=== PATIENT | male | born 1970 | race Two or more races ===

== ENCOUNTER 2024-08-05 18:44 | Inpatient (IN) | payer OTHER ==
[2024-08-05] MEDS ORDERED: SUCRALFATE 1 GM TABLET (FP) ONE (19:39)
[2024-08-05] MEDS ORDERED: MAG HYDROX/AL HYDROX/SIMETH 30 ML UNIT-DOSE CUP ONE (19:40)
[2024-08-05] MEDS ORDERED: FAMOTIDINE 20 MG/50 ML IVPB 20 MG/50 ML MG IVPB ONE (19:40)
[2024-08-05] MEDS: SUCRALFATE 1 GM/10 ML UNIT DOSE CUPS PO ONE (20:02)
[2024-08-05] MEDS: MAG HYDROX/AL HYDROX/SIMETH 30 ML UNIT-DOSE CUP PO ONE (20:02)
[2024-08-05] MEDS: FAMOTIDINE 20 MG/50 ML IVPB 20 MG/50 ML MG IVPB ONE (20:02)
[2024-08-05 20:03] LABS: ABSOLUTE IMMATURE GRANULOCYTES 0.03 x10^3/uL (0.0-0.031); BASOPHILS # 0.03 x10^3/uL (0.01-0.08); EOSINOPHIL % 2.2 % (0.8-7.0); EOSINOPHILS # 0.22 x10^3/uL (0.04-0.54); HEMATOCRIT 43.2 % (40.1-51.0); HEMOGLOBIN 14.6 g/dL (13.7-17.5); MCHC 33.8 g/dl (32.3-36.5); MEAN CELL VOLUME 90.2 fl (79.0-92.2); MONOCYTE # 0.65 x10^3/uL (0.30-0.82); MONOCYTE % 6.6 % (5.3-12.2); PLATELET COUNT 215 x10^3/uL (163-337); RDW 11.7 % (12.2-16.1)
[2024-08-05 20:22] LABS: POTASSIUM 4.1 mmol/L (3.5-5.1)
[2024-08-05 20:24] LABS: CALCIUM 9.8 mg/dL (8.5-10.1)
[2024-08-05 20:25] LABS: ALBUMIN 3.8 g/dl (3.4-5.0); BLOOD UREA NITROGEN 9.2 mg/dL (7-18)
[2024-08-05 20:28] LABS: CREATININE 1.1 mg/dL (0.55-1.3)
[2024-08-05 20:29] LABS: BILIRUBIN,TOTAL 0.5 mg/dL (0.2-1)
[2024-08-05 20:30] LABS: TOT PROT 7.9 g/dl (6.4-8.2)
[2024-08-05] MEDS ORDERED: ACETAMINOPHEN INJECTION 100 ML ONE (21:00)
[2024-08-05] MEDS: ACETAMINOPHEN 1000 MG/100 ML BAG IVPB ONE (21:31)
[2024-08-05] MEDS: LACTATED RINGERS SOLUTION 1000 ML INFUS.BAG IV ONE (22:32)
[2024-08-06 00:01] VITALS: RESP 18
[2024-08-06 00:42] LABS: URINE BARBITURATES NEGATIVE (NEGATIVE)
[2024-08-06 00:43] LABS: COCAINE, UR NEGATIVE (NEGATIVE); METHADONE, UR NEGATIVE (NEGATIVE); OPIATES, URI NEGATIVE (NEGATIVE); PHENCYCLIDINE,URINE NEGATIVE (NEGATIVE); URINE BENZODIAZEPINES NEGATIVE (NEGATIVE)
[2024-08-06 01:00] LABS: URINE AMPHETAMINES NEGATIVE (NEGATIVE)
[2024-08-06] MEDS: LACTATED RINGERS SOLUTION 1,000 ML/1,000 ML INFUS.BAG IV SCH (01:15)
[2024-08-06] MEDS ORDERED: ACETAMINOPHEN 1000 MG/100 ML BAG IVPB PRN (04:15)
[2024-08-06 04:34] VITALS: BMI 38.7
[2024-08-06] MEDS: LEVOTHYROXINE NA 112 MCG TABLET (FP) PO SCH (06:40)
[2024-08-06 07:27] LABS: ABSOLUTE IMMATURE GRANULOCYTES 0.02 x10^3/uL (0.0-0.031); BASOPHILS # 0.04 x10^3/uL (0.01-0.08); EOSINOPHIL % 3.4 % (0.8-7.0); EOSINOPHILS # 0.27 x10^3/uL (0.04-0.54); HEMATOCRIT 41.9 % (40.1-51.0); HEMOGLOBIN 14.1 g/dL (13.7-17.5); MCHC 33.7 g/dl (32.3-36.5); MEAN CELL VOLUME 90.3 fl (79.0-92.2); MEAN PLT VOLUME 10.2 fl (9.4-12.4); MONOCYTE # 0.58 x10^3/uL (0.30-0.82); MONOCYTE % 7.2 % (5.3-12.2); PLATELET COUNT 207 x10^3/uL (163-337); RDW 11.9 % (12.2-16.1)
[2024-08-06 07:46] LABS: POTASSIUM 4.1 mmol/L (3.5-5.1)
[2024-08-06 07:48] LABS: CALCIUM 9.5 mg/dL (8.5-10.1)
[2024-08-06 07:49] LABS: ALBUMIN 3.5 g/dl (3.4-5.0); BLOOD UREA NITROGEN 7.6 mg/dL (7-18)
[2024-08-06 07:51] LABS: BILIRUBIN,DIRECT 0.2 mg/dL (0.0-0.2)
[2024-08-06 07:53] LABS: BILIRUBIN,TOTAL 0.6 mg/dL (0.2-1); TOT PROT 7.2 g/dl (6.4-8.2)
[2024-08-06] MEDS: ROSUVASTATIN CA 10 MG TABLET PO SCH (21:34)
[2024-08-07 15:02] VITALS: BP 126/87; PULSE 69; TEMP 98.2
== END 2024-08-07 16:43 | disposition home or self-care (01) | DRG 440 ==
LOC: JER 18:44 → JERBED 23:26 → J7W 08-06 04:16 → OBSVTOIN 08-06 13:41
PROVIDERS: ADMIT Internal Medicine; ATTEND Allergy & Immunology
DX: K85.10 Biliary acute pancreatitis without necrosis or infection (principal); I10 Essential (primary) hypertension; E78.5 Hyperlipidemia, unspecified; E03.9 Hypothyroidism, unspecified; E66.9 Obesity, unspecified; Z68.38 Body mass index [BMI] 38.0-38.9, adult; G47.33 Obstructive sleep apnea (adult) (pediatric); R68.81 Early satiety
CPT/HCPCS: 36415; 71046-TC-FY; 71260-TC; 74177-TC; 76705-TC; 80048; 80053; 80076; 80307; 82787; 83690; 84478; 84484; 85025; 93005; 93010; 94660; 99285-25; G0378; Q9967